=== PATIENT | female | born 1995 | race Caucasian/White ===

== ENCOUNTER 2017-08-18 09:12 | Emergency (ER) | payer OTHER ==
[~2017-08-18] VITALS: Ht 154.9 cm; Wt 87.0 kg
[~2017-08-18 09:12] MED LIST: AMOX400S3 PO; CIPRHC10A AD; TYLCOD5S PO; Z.0.NO CURRENT MEDS
[2017-08-18 09:13] VITALS: BP 128/80; PULSE 156; RESP 16; TEMP 98.6; O2SAT 95
[2017-08-18 09:21] VITALS: BP 128/80; PULSE 156; RESP 16; TEMP 98.6; O2SAT 95
[2017-08-18 09:54] LABS: AUTOMATED NEUTROPHIL # 6.3 TH/MM3 (1.8-7.7); BASOPHIL # 0.1 TH/MM3 (0-0.2); BASOPHIL % 1.7 % (0.0-2.0); HEMATOCRIT 43.1 % (35.0-46.0); HEMOGLOBIN 14.4 GM/DL (11.6-15.3); LYMPH % 6.8 % (9.0-44.0); LYMPHOCYTE # 0.5 TH/MM3 (1.0-4.8); MEAN CELL VOLUME 79.9 FL (80.0-100.0); MEAN CORPUSCULAR HEMOGLOBIN 26.6 PG (27.0-34.0); MEAN CORPUSCULAR HGB CONC 33.3 % (32.0-36.0); MEAN PLATELET VOLUME 8.8 FL (7.0-11.0); MONO % 6.7 % (0.0-8.0); MONOCYTE # 0.5 TH/MM3 (0-0.9); NEUT % 84.8 % (16.0-70.0); PLATELET COUNT 302 TH/MM3 (150-450); RED CELL DISTRIBUTION WIDTH 12.2 % (11.6-17.2); WHITE BLOOD COUNT 7.4 TH/MM3 (4.0-11.0)
[2017-08-18] MEDS ORDERED: PANTOPRAZOLE SODIUM 40 MG VIAL IV PUSH ONE (10:00)
[2017-08-18] MEDS ORDERED: SODIUM CHLOR 0.9% 1000 ML INJ 1,000 ML IV ONE ×2 (10:00→11:00)
[2017-08-18] MEDS ORDERED: SODIUM CHLOR 0.9% 250 ML INJ 250 ML IV ONE (10:00)
[2017-08-18 10:09] LABS: CHLORIDE 103 MEQ/L (98-107); SODIUM (NA) 136 MEQ/L (136-145)
[2017-08-18 10:12] LABS: CALCIUM 8.6 MG/DL (8.5-10.1)
[2017-08-18 10:13] LABS: BICARBONATE 22.9 MEQ/L (21.0-32.0); BLOOD UREA NITROGEN 16 MG/DL (7-18); GLUCOSE,RANDOM 140 MG/DL (74-106)
[2017-08-18 10:16] LABS: ALT (GPT) 30 U/L (10-53); AST (GOT) 13 U/L (15-37); GLOMERULAR FILTRATION RATE 69 ML/MIN (>89)
[2017-08-18 10:17] LABS: TOTAL BILIRUBIN ADULT 0.7 MG/DL (0.2-1.0); TOTAL PROTEIN 8.4 GM/DL (6.4-8.2)
[2017-08-18 10:18] LABS: ALKALINE PHOSPHATASE 39 U/L (45-117)
[2017-08-18 10:45] VITALS: BP 124/72; PULSE 126; RESP 16; O2SAT 97
--- NOTE | 2017-08-18 11:13 | PD ---
HPI Chief Complaint: GI Complaint Time Seen by Provider: 09:32 Travel History International Travel<30 days: No Contact w/Intl Traveler<30days: No Traveled to known affect area: No History of Present Illness HPI This is the 21-year-old female presents to the ER complaining of nausea vomiting diarrhea for the last 4 days. Vomiting is nonbilious nonbloody, diarrhea is nonbloody but foul-smelling. Patient does not recall eating anything out of the ordinary in the last few days. She denies any fever chills or night sweats. She states that she gets occasional abdominal pain and get relieved by diarrhea. She is currently not nauseated and she is able to hold food and fluids down. PFSH Past Medical History Medical History: Denies Significant Hx Hx Anticoagulant Therapy: No Diminished Hearing: No Musculoskeletal: Yes (HIP DYSPLASIA @ ) Immunizations Current: Yes Tetanus Vaccination: Unknown ?: Not Past Surgical History Surgical History: No Previous Surgery Social History Alcohol Use: Yes (RARE) Tobacco Use: No Substance Use: No Allergies-Medications (Allergen,Severity, Reaction): Coded Allergies: No Known Allergies (Verified Adverse Reaction, Unknown, 08/18/17) Reported Meds & Prescriptions Reported Meds & Active Scripts Active No Active Prescriptions or Reported Medications Review of Systems Except as stated in HPI: all other systems reviewed are Neg Physical Exam Narrative GENERAL: Alert oriented 3 no acute distress. SKIN: Focused skin assessment warm/dry. HEAD: Atraumatic. Normocephalic. EYES: Pupils equal and round. No scleral icterus. No injection or drainage. ENT: No nasal bleeding or discharge. Mucous membranes pink and moist. NECK: Trachea midline. No JVD. CARDIOVASCULAR: Regular rate and rhythm. No murmur appreciated. RESPIRATORY: No accessory muscle use. Clear to auscultation. Breath sounds equal bilaterally. GASTROINTESTINAL: Abdomen soft, non-tender, nondistended. Hepatic and splenic margins not palpable. MUSCULOSKELETAL: No obvious deformities. No clubbing. No cyanosis. No edema. NEUROLOGICAL: Awake and alert. No obvious cranial nerve deficits. Motor grossly within normal limits. Normal speech. PSYCHIATRIC: Appropriate mood and affect; insight and judgment normal. Data Data Last Documented VS Vital Signs Date Time Temp Pulse Resp B/P (MAP) Pulse Ox O2 Delivery O2 Flow Rate FiO2 08/18/17 10:45 126 16 124/72 (89) 97 Room Air 3/12/18 09:21 98.6 Orders Orders Complete Blood Count With Diff (08/18/17 09:46) Comprehensive Metabolic Panel (08/18/17 09:46) Pantoprazole Inj (Protonix Inj) (08/18/17 10:00) Sodium Chlor 0.9% 250 Ml Inj (Ns 250 Ml (08/18/17 10:00) Urinalysis - C+S If Indicated (08/18/17 09:51) Sodium Chlor 0.9% 1000 Ml Inj (Ns 1000 M (08/18/17 10:00) Sodium Chlor 0.9% 1000 Ml Inj (Ns 1000 M (08/18/17 11:00) Lipase (08/18/17 11:07) Beta Hydroxybutyrate (Acetone) (08/18/17 11:07) Ed Discharge Order (08/18/17 11:49) Labs Laboratory Tests Test 08/18/17 09:30 White Blood Count 7.4 TH/MM3 Red Blood Count 5.40 MIL/MM3 Hemoglobin 14.4 GM/DL Hematocrit 43.1 % Mean Corpuscular Volume 79.9 FL Mean Corpuscular Hemoglobin 26.6 PG Mean Corpuscular Hemoglobin Concent 33.3 % Red Cell Distribution Width 12.2 % Platelet Count 302 TH/MM3 Mean Platelet Volume 8.8 FL Neutrophils (%) (Auto) 84.8 % Lymphocytes (%) (Auto) 6.8 % Monocytes (%) (Auto) 6.7 % Eosinophils (%) (Auto) 0.0 % Basophils (%) (Auto) 1.7 % Neutrophils # (Auto) 6.3 TH/MM3 Lymphocytes # (Auto) 0.5 TH/MM3 Monocytes # (Auto) 0.5 TH/MM3 Eosinophils # (Auto) 0.0 TH/MM3 Basophils # (Auto) 0.1 TH/MM3 CBC Comment DIFF FINAL Differential Comment Blood Urea Nitrogen 16 MG/DL Creatinine 1.00 MG/DL Random Glucose 140 MG/DL Total Protein 8.4 GM/DL Albumin 4.0 GM/DL Calcium Level 8.6 MG/DL Alkaline Phosphatase 39 U/L Aspartate Amino Transf (AST/SGOT) 13 U/L Alanine Aminotransferase (ALT/SGPT) 30 U/L Total Bilirubin 0.7 MG/DL Sodium Level 136 MEQ/L Potassium Level 3.7 MEQ/L Chloride Level 103 MEQ/L Carbon Dioxide Level 22.9 MEQ/L Anion Gap 10 MEQ/L Estimat Glomerular Filtration Rate 69 ML/MIN Lipase 74 U/L B-Hydroxybutyrate 0.39 MMOL/L MDM Medical Decision Making Medical Screen Exam Complete: Yes Emergency Medical Condition: Yes Differential Diagnosis Gastroenteritis, gastritis, bowel obstruction. Narrative Course This is a 21-year-old female presents to the ER complaining of nausea vomiting and diarrhea for the last few days. Physical exam is unremarkable abdomen is benign, no fever or chills, patient is not sick appearing. Patient responded well to IV hydration and labs are within normal limits. Will discharge the patient home on antinausea medications and I have her follow-up with her primary care physician. Diagnosis Primary Impression: Gastroenteritis Additional Instructions: Return to ER if symptoms change or do not improve. Scripts Ondansetron (Zofran) 4 Mg Tab 4 MG PO Q12HR Y for NAUSEA OR VOMITING, #15 TAB 0 Refills Prov: Napoleon Gordillo MD 08/18/17 Disposition: DISCHARGE HOME Condition: Stable Napoleon Gordillo MD Aug 18, 2017 11:13
[2017-08-18] MEDS ORDERED: ZOFR4TAB PO (11:51)
[2017-08-18 12:20] VITALS: BP 115/79
== END 2017-08-18 12:27 | disposition home or self-care (01) ==
LOC: PHED 09:12
DX: K52.9 Noninfective gastroenteritis and colitis, unspecified (principal)
CPT/HCPCS: 80053; 82010; 83690; 85025; 96361; 96374; 99284; C9113; J7030